=== PATIENT | female | born 2000 ===

== ENCOUNTER 2021-02-25 03:36 | Inpatient (IN) ==
[2021-02-25 04:30] LABS: Urine Appearance Cloudy; Urine Bilirubin Negative (Negative); Urine Blood Negative (Negative); Urine Color Yellow; Urine Glucose Negative (Negative); Urine Ketones Trace (Negative); Urine Nitrite Negative (Negative); Urine Protein Negative (Negative); Urine Specific Gravity 1.019 (1.002-1.030); Urine Urobilinogen Negative (Negative)
[2021-02-25 04:37] LABS: ABS Eosinophils 0.1 10^3/ul (0-0.6); ABS Lymphocytes 2.9 10^3/ul (1.0-4.8); ABS Monocytes 0.5 10^3/ul (0-0.8); Hematocrit 39 % (35-47); Hemoglobin 13.4 g/dL (12.0-16.0); Lymphocyte % 53.2 %; Mean Corpuscular HGB Conc 34 g/dL (31-36); Mean Corpuscular Hemoglobin 32 pg (27-31); Mean Corpuscular Volume 92 fL (80-97); Nucleated Red Blood Cells % 0.1; Platelet Count 152 10^3/uL (150-450); Red Blood Count 4.23 10^6 /uL (3.70-4.87); Red Cell Distribution Width 14 % (10-15); White Blood Count 5.5 10^3/uL (3.5-10.8)
[2021-02-25 04:46] LABS: ALT 16 U/L (7-52); AST 22 U/L (13-39); Albumin 4.5 g/dL (3.2-5.2); Albumin/Globulin Ratio 1.4 (1-3); Alkaline Phosphatase 74 U/L (35-149); Anion Gap 9 mmol/L (2-11); Blood Urea Nitrogen 10 mg/dL (6-24); CO2 Carbon Dioxide 24 mmol/L (22-32); Calcium 9.6 mg/dL (8.6-10.3); Chloride 102 mmol/L (101-111); Globulin 3.2 g/dL (2-4); Glucose 95 mg/dL (70-100); Potassium 3.7 mmol/L (3.5-5.0); Sodium 135 mmol/L (135-145); Total Protein 7.7 g/dL (6.4-8.9); eGFR CKD-EPI 103.7 (>60)
[2021-02-25 04:47] LABS: Urine Benzodiazepine Screen None Detected (None Detect); Urine Cannabinoids Screen None Detected (None Detect); Urine Opiates Screen None Detected (None Detect)
[2021-02-25 04:53] LABS: HCG Pregnancy < 0.60 mIU/mL
[2021-02-25 04:54] LABS: Acetaminophen < 15 mcg/mL; Alcohol, S < 13 mg/dL (<13); Salicylate < 2.50 mg/dL (<30)
[2021-02-25 05:10] LABS: TSH Ultra Thyroid Stim Horm 7.56 mcIU/mL (0.34-5.60)
[2021-02-25] MEDS ORDERED: Al Hydrox/Mg Hydrox/Simet LIQ 30 ML UDC PO PRN (09:53)
[2021-02-25] MEDS: Vitamin THERAPEUTIC TAB PO SCH (09:59)
[2021-02-25 20:24] LABS: Rapid COVID-19 Molecular Undetected (Undetected)
[2021-02-26] MEDS ORDERED: Flu vaccine *QUAD* 2021-22* 0.5 ML SYRINGE IM ONE (09:00)
[2021-02-26] MEDS ORDERED: CMCS: FluvoxaMINE 50 mg TAB (NF) PO SCH (09:00)
[2021-02-26] MEDS: Vitamin THERAPEUTIC TAB PO SCH (11:13)
[2021-02-26 11:47] LABS: Free T4 0.94 ng/dL (0.61-1.12)
[2021-02-26 11:53] LABS: Vitamin B12 824 pg/mL (180-914)
[2021-02-26 11:55] LABS: Vitamin D Total 25(OH) 26.5 ng/mL (20-50)
[2021-02-27] MEDS: Vitamin THERAPEUTIC TAB PO SCH (08:52)
[2021-02-28 07:42] LABS: HDL Cholesterol 59.3 mg/dL
[2021-02-28] MEDS: Vitamin THERAPEUTIC TAB PO SCH (08:18)
[2021-03-01] MEDS: Vitamin THERAPEUTIC TAB PO SCH (09:15)
[2021-03-02 08:05] VITALS: BP 98/64
[2021-03-02] MEDS: Vitamin THERAPEUTIC TAB PO SCH (08:45)
== END 2021-03-02 13:24 | disposition home or self-care (01) | DRG 751 ==
LOC: ED 03:36 → BSU 06:45
PROVIDERS: ADMIT Psychiatry & Neurology Addiction Psychiatry; ATTEND Psychiatry & Neurology Addiction Psychiatry